=== PATIENT | female | born 2000 | race Caucasian/White ===

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

== ENCOUNTER 2020-11-22 20:11 | Emergency (ER) | payer SELFPAY ==
[~2020-11-22] VITALS: Ht 154.9 cm; Wt 61.7 kg
[2020-11-22 20:30] VITALS: BP 130/87
[2020-11-22 23:14] VITALS: BP 130/87
== END 2020-11-22 23:14 | disposition home or self-care (01) ==
LOC: MED 20:11
DX: O20.0 Threatened abortion (principal); Z3A.08 8 weeks gestation of pregnancy
CPT/HCPCS: 36415; 76817; 81025; 84702; 99284

== ENCOUNTER 2020-12-01 17:51 | Emergency (ER) | payer SELFPAY ==
[~2020-12-01] VITALS: Ht 154.9 cm; Wt 59.9 kg
[2020-12-01 18:08] VITALS: BP 129/80
[2020-12-01 18:37] LABS: BASOPHILS # (AUTO) 0.1 K/uL (0.00-0.22); BASOPHILS % (AUTO) 0.7 % (0.0-2.0); EOSINOPHILS # (AUTO) 0.2 K/uL (0-0.4); EOSINOPHILS % (AUTO) 2.5 % (0.0-4.0); HEMATOCRIT 37.1 % (36-48); HEMOGLOBIN 12.4 g/dL (12.0-16.0); LYMPHOCYTES # (AUTO) 2.2 K/uL (2.5-16.5); LYMPHOCYTES % (AUTO) 22.8 % (20.5-51.1); MEAN CORPUSCULAR HEMOGLOBIN 28 pg (27-31); MEAN CORPUSCULAR HGB CONC 33 g/dL (33-37); MEAN CORPUSCULAR VOLUME 83.5 fL (80-94); MONOCYTES # (AUTO) 0.8 K/uL (0.8-1.0); MONOCYTES % (AUTO) 8.7 % (1.7-9.3); NEUTROPHILS # (AUTO) 6.2 K/uL (1.8-7.7); NEUTROPHILS % (AUTO) 65.3 % (42.2-75.2); PLATELET COUNT (AUTO) 378 K/uL (140-450); RED BLOOD CELL COUNT(AUTO) 4.44 MIL/uL (4.20-5.40); RED CELL DISTRIBUTION WIDTH 15.3 % (11.6-13.7); WHITE BLOOD COUNT (AUTO) 9.5 K/uL (4.5-11.0)
[2020-12-01 18:51] LABS: APPEARANCE,URINE CLOUDY (CLEAR); BILIRUBIN,URINE NEGATIVE (NEGATIVE); BLOOD, URINE 3+ (NEGATIVE); LEUKOCYTE ESTERASE ,URINE TRACE (NEGATIVE); NITRITE, URINE NEGATIVE (NEGATIVE); UGLUCOSE NEGATIVE (NEGATIVE)
--- NOTE | 2020-12-01 18:52 | NUR ---
19 YEAR OLD FEMALE COMPLAINS OF VAGINAL BLEEDING X YESTERDAY. PT STATES SHE IS 9 WEEKS AND BLEEDING WITH 1 PAD CHANGE SINCE YESTERDAY. PT STATES CONTRACTIONS OCCUR EVERY 3 MINS. PT AOX4, BREATHING EVEN AND UNLABORED, SKIN WARM AND DRY. BED IN LOWEST POSITION, LOCKED, BED RAIL UPX1. PMH - DENIES ALLERGIES - NKA
[2020-12-01 19:00] LABS: COLOR,URINE SLIGHT BLOODY (YELLOW)
[2020-12-01 19:03] LABS: RBC,URINE TOO NUMEROUS TO COUN /HPF (0-5)
[2020-12-01] MEDS ORDERED: IBUP-2213 PO (19:34)
[2020-12-01] MEDS ORDERED: NITR100C7 PO (19:34)
[2020-12-01 20:53] VITALS: BP 109/70
--- NOTE | 2020-12-01 20:53 | NUR ---
Patient discharged with v/s stable. Written and verbal after care instructions given and explained. Patient alert, oriented and verbalized understanding of instructions. Ambulatory with steady gait. All questions addressed prior to discharge. ID band removed. Patient advised to follow up with PMD. Rx of MACROBID & IBUPROFEN given. Patient educated on indication of medication including possible reaction and side effects. Opportunity to ask questions provided and answered.
== END 2020-12-01 20:53 | disposition home or self-care (01) ==
LOC: MED 17:51
DX: O03.9 Complete or unspecified spontaneous abortion without complication (principal); O23.41 Unspecified infection of urinary tract in pregnancy, first trimester; Z3A.09 9 weeks gestation of pregnancy
CPT/HCPCS: 36415; 81001; 84702; 85025; 86900; 86901; 87086; 99283

== ENCOUNTER 2022-03-04 17:01 | Emergency (ER) | payer OTHER ==
[~2022-03-04] VITALS: Ht 180.3 cm; Wt 68.0 kg
[~2022-03-04 17:01] MED LIST: IBUP-2213 PO; NITR100C7 PO
[2022-03-04 17:23] VITALS: BP 128/98
--- NOTE | 2022-03-04 17:29 | NUR ---
PT AMB TO BED 5.
[2022-03-04] MEDS ORDERED: diphenhydrAMINE 50 MG CAP PO ONE (17:35)
[2022-03-04] MEDS ORDERED: DIPH25TA53 PO (17:38)
[2022-03-04] MEDS ORDERED: PRED20TA5 PO (17:38)
--- NOTE | 2022-03-04 18:01 | NUR ---
21/F PRESENTS TO ED WITH C/O RED ITCHY RASH TO BILATERAL LEGS X2 HOURS. PATIENT DENIES NEW FOODS, DRINKS OR PRODUCTS USED, DENIES EXPERIENCING SYMPTOMS IN THE PAST. PATIENT DENIES TAKING ANYTHING FOR SYMPTOMS, DENIES SOB, DIFFICULTY SWALLOWING OR CP.
[2022-03-04 18:20] VITALS: BP 128/98
--- NOTE | 2022-03-04 18:20 | NUR ---
Patient discharged with v/s stable. Written and verbal after care instructions ABOUT RASH given and explained. Patient alert, oriented and verbalized understanding of instructions. Ambulatory with steady gait. All questions addressed prior to discharge. ID band removed. Patient advised to follow up with PMD. Rx of BENADRYL AND DELTASONE given. Patient educated on indication of medication including possible reaction and side effects. Opportunity to ask questions provided and answered.
== END 2022-03-04 18:20 | disposition home or self-care (01) ==
LOC: MED 17:01
DX: R21 Rash and other nonspecific skin eruption (principal); Z79.1 Long term (current) use of non-steroidal anti-inflammatories (NSAID); Z79.2 Long term (current) use of antibiotics
CPT/HCPCS: 99283; Q0163